=== PATIENT | female | born 1955 | race Caucasian/White ===

== ENCOUNTER 2016-07-03 21:29 | Emergency (ER) | payer SELFPAY ==
--- NOTE | 2016-07-04 03:17 | ED CLINICAL REPORT ---
Clinical Report - Physicians/Mid Levels [facility] [address] [place] [address] 07/03/2016 21:29 Patient: MARIELLA ARMENTA Time Seen: 22:01; initial patient contact. Arrived- By private vehicle. Historian- patient. HISTORY OF PRESENT ILLNESS Chief Complaint: SKIN RASH. This started several years ago and is still present (worse since 1 1/2 weeks ago). It was gradual in onset. It has been located on the right lower extremity. A possible cause has been identified (Old injury from years ago that never healed.). No recent medication or insect bite. Similar symptoms previously: Many times. Recent medical care: Not recently seen/assessed. REVIEW OF SYSTEMS No fever, chills, difficulty breathing, nausea or vomiting. All systems otherwise negative, except as recorded above. PAST HISTORY Hemorrhoids. Hypokalemia. Substance Abuse. Lower Extremity Pain. Fall. Contusion. Pneumonia. Constipation. Rectal Bleed. -. SOCIAL HISTORY Current every day smoker (electronic cigarrette). Occasional alcohol use. No drug use. ADDITIONAL NOTES The nursing notes have been reviewed with agreement regarding the chief complaint, PMH and patient medications and allergies. PHYSICAL EXAM Vital Signs: 07/03/2016 21:30 BP: 97/58. HR: 101. RR: 20. O2 saturation: 100%. Temp: 97.8 F. Have been reviewed. Hypotensive. Tachycardic. Respiratory rate normal. Temperature normal. Oxygen saturation normal. Appearance: Alert. Oriented X3. No acute distress. ENT: Pharynx normal. CVS: Normal heart rate and rhythm. Heart sounds normal. Respiratory: No respiratory distress. Breath sounds normal. Rectal: Rectal exam normal and nontender. Stool heme negative; hemoccult quality control head check passed. (POC test reference range: negative). Stool color normal. ( Female DION Salazar I present.). Skin: Moderate pallor. (Multiple ulcers on RLE). Extremities: Bilateral 1+ pitting edema of the lower extremities involving both lower legs. Neuro: Oriented X 3. No motor deficit. LABS, X-RAYS, AND EKG Laboratory Tests: CBC w Diff: (FABRICIO: 07/03/2016 21:50) ( [facility] 07/03/2016 22:33) Final results Test Result Flag Units (Reference) WHITE BLOOD COUNT 11.3 K/uL (4.5-11.5) RED BLOOD COUNT 2.00 L M/uL (4.00-5.20) HEMOGLOBIN 5.5 *L gm/dL (12.0-16.0) CRITICAL RESULTS CALLEDCalled to [facility] 07/03/16 223Were 2 patient identifiers used? YWas the result read back? Y HEMATOCRIT 17.2 *L % (36.0-46.0) CRITICAL RESULTS CALLEDCalled to [facility] 07/03/162231Were 2 patient identifiers used? YWas the result read back? Y MEAN CELL VOLUME 86 fL (80-100) MEAN CORPUSCULAR HGB 27 pg (26-34) MEAN CORPUSCULAR HGB CONC 32 g/dL (31-37) RED CELL DISTRIBUTION WIDTH 19.0 H % (11.6-14.8) PLATELET COUNT 269 K/uL (150-400) NEUTROPHIL % 72.4 % (50-75) LYMPH % 10.9 L % (25-40) MONO % 14.4 H % (3-14) EOSINOPHIL % 1.8 % (0-4) BASOPHIL % 0.5 % (0-2) BNP: (FABRICIO: 07/03/2016 21:50) ( [facility] 07/03/2016 22:49) Final results Test Result Flag Units (Reference) B-TYPE NATRIURETIC PEPTIDE 144 H pg/ml (5-100) [id number]: (FABRICIO: 07/03/2016 21:50) ( [facility] 07/03/2016 23:05) Final results Test Result Flag Units (Reference) PROCALCITONIN <0.5 ng/mL (0-0.5) PCT Concentration: Interpretation : Risk/option for action PCT <=0.5 ng/mL : Systemic : Low risk forinfection(sepsis): progression to severeis not likely. : systemic infection.Local bacterial : CAUTION-PCT levelsinfection is : below 0.5 ng/mL do notpossible. : exclude an infection,because localizedinfections (withoutsystemic signs) may beassociated with suchlow levels. If PCT ismeasured very earlyafter a bacterialchallenge (usually <6hours), these valuesmay still be low. Inthis case PCT shouldbe re-assessed 6-24hours later. PCT >0.5 and : Systemic infection: Moderate risk for<= 2 ng/mL : (sepsis) is : progression to severepossible, but : systemic infection.other conditions : The patient should beare known to : closely monitoredelevate PCT. : both clinically andby re-assessing PCTwithin 6-24 hours. PCT > 2 ng/mL : Systemic infection: High risk for(sepsis) is likely: progression to severeunless other : systemic infection.causes are known. : PCT >= 10 ng/mL : Important systemic: High likelihood ofinflammatory : severe sepsis orresponse, almost : septic shock.exclusively due to:severe bacterial :sepsis or septic :shock. : CMP: (FABRICIO: 07/03/2016 21:50) ( MsgRcvd 07/03/2016 22:50) Final results Test Result Flag Units (Reference) GLUCOSE 121 H mg/dL (70-110) BUN 22 H mg/dL (7-18) CREATININE 1.0 mg/dL (0.6-1.3) Estimated GFR 59.71 mL/min Estimated GFR- >60 mL/min Note: Persistent reduction over 3 months in eGFR<60 mL/min/1.73 m2 defines CKD. Patients with eGFR values>=60 mL/min/1.73 m2 may also have CKD if evidence ofpersistent proteinuria. Additional information may be foundat www.kidney.org. SODIUM 138 mmol/L (136-145) POTASSIUM 4.4 mmol/L (3.5-5.1) CHLORIDE 106 mmol/L (98-107) CARBON DIOXIDE 22 mmol/L (21-32) CALCIUM 8.6 mg/dL (8.5-10.1) TOTAL PROTEIN 7.1 g/dL (6.4-8.2) ALBUMIN 2.3 L g/dL (3.3-5.0) BILIRUBIN, TOTAL 0.6 mg/dL (0.0-1.0) ALKALINE PHOSPHATASE 178 H U/L (46-116) AST (SGOT) 47 H U/L (15-37) ALT (SGPT) 33 U/L (12-78) LACTIC ACID SEPSIS PROTOCOL 2.1 H mmol/L (0.4-2.0) Type & Cross: (FABRICIO: 07/03/2016 21:50) ( MsgRcvd 07/04/2016 00:03) IP Test Result Flag Units (Reference) LEUKOREDUCED PACKED CELLS [id number] OP PC XM COMPATIBLE [id number] OP PC ISSUED 07/04/16 0000 PATIENT BLOOD TYPE O Positive Above is a corrected result. Previously reported on ( MsgRcvd 07/03/2016 23:40) as: PATIENT BLOOD TYPE O Positive ANTIBODY SCREEN NEGATIVE Above is a corrected result. Previously reported on ( MsgRcvd 07/03/2016 23:40) as: ANTIBODY SCREEN NEGATIVE . PROGRESS AND PROCEDURES Critical care performed (70 minutes). Time includes: direct patient care, patient reassessment, coordination of patient care, interpretation of data (laboratory data and pulse oximetry), review of patient's medical records, medical consultation, family consultation regarding treatment decisions and documentation of patient care. The patient required critical care due to the acute impairment of vital organ systems (hematologic) and a high probability of imminent deterioration. Multiple urgent interventions were required to prevent sudden deterioration. Discussed case with hospitalist, (call returned :49 Dr. Joshi at [facility]. Will accept pt.). Disposition: Benefits, risks and alternatives to transfer explained to patient and family. Transferred to [facility]. CLINICAL IMPRESSION Severe chronic anemia. Mild idiopathic hypotension. (Non-healing right lower extremity ulcers). (Electronically signed by Heraclio Croft Dr. 07/04/2016 2:00)
--- NOTE | 2016-07-04 03:17 | ED DISCHARGE INSTRUCTIONS ---
Patient: MARIELLA ARMENTA General Instructions [facility] VisitID: [id number] [place] [address] 60y, F Registration Date/Time: 07/03/2016 Severe chronic anemia. Mild idiopathic hypotension. (Non-healing right lower extremity ulcers). ADDITIONAL INFORMATION Anemia [Type Not Specified, Adult] Red blood cells carry oxygen to the tissues of the body. Anemia is a condition where the size or number of red blood cells in the body is reduced. Iron is needed to make red blood cells. The most common cause of anemia is iron deficiency. This may be due to: i) Blood loss (heavy menstrual periods or bleeding from the stomach or intestines); or, ii) Not eating enough iron-containing foods. Other causes of anemia include certain vitamin deficiencies, chronic kidney disease or certain other chronic illnesses. Anemia causes a feeling of being tired and run down. When anemia becomes severe, the skin becomes pale and there is shortness of breath with exertion. Headaches, dizziness, leg cramps with exertion, drowsiness and fatigue are other common symptoms. Home Care: If you are having symptoms of anemia listed above: -- Do not overexert yourself. -- Talk to your doctor before flying on an airplane or traveling to high altitudes. Follow Up with your doctor as advised by our staff. Additional blood testing may be required to determine the exact cause of your anemia. If testing was done on this visit, it may take several days to get all of the results. You may call this facility or follow up with your own doctor to get the results. Get Prompt Medical Attention if any of the following occur: -- Shortness of breath or chest pain -- Worsening of dizziness, fainting -- Vomiting blood or passing red or black-colored stool You have been given the following additional information: Anemia, Type Not Specified (Adult) (Electronically signed by Heraclio Croft Dr. 07/04/2016 2:00)
--- NOTE | 2016-07-04 03:17 | ED MED RECONCILIATION SUMMARY ---
Patient: MARIELLA ARMENTA Medication Reconciliation Report [facility] VisitID: [id number] [address] [place] [address] 60y, F Registration Date/Time: 07/03/2016 Weight: 95.2 kg Height/Length: 62 in. BMI: 38.4 ALLERGIES: Codeine The patient's Home Medications are listed below: NONE. The source(s) of the original Home Medication information: patient The following Medications were given to the patient in the Emergency Department: IV NS IV Fluids bolus 0, then 999 mL/hr, administered: 07/03/2016 10:27:00 PM Ativan [IVP] IVP 1 mg, administered: 07/04/2016 2:50:00 AM The following Medications were prescribed to the patient: None.
--- NOTE | 2016-07-04 03:17 | ED ORDER SUMMARY ---
..... Patient: MARIELLA ARMENTA OrderSheet [facility] VisitID: [id number] [place] [address] 60y, F Registration Date/Time: 07/03/2016 ORDER SHEET Weight: 95.2 kg (stated) Allergies: Codeine GENERAL ORDERS: Blood Culture (No) (N/A) Urgent (22:17 07/03/2016 Namita Zuñiga) (22:19 TLewis R.N.) CBC w Diff Urgent (22:17 07/03/2016 Namita Zuñiga) (22:19 TLewis R.N.) CMP Urgent (22:07/03/2016 Namita Zuñiga) (22:19 TLewis R.N.) UA-Culture if indicated Urgent (22:07/03/2016 Namita Zuñiga) (22:19 TLewis R.N.) BNP Urgent (22:07/03/2016 Namita Zuñiga) (Ack 22:20 IJurca ER Tech1) (22:20 TLewis R.N.) Lactic Acid for Sepsis Protocol Urgent (22:17 07/03/2016 Namita Zuñiga) (22:19 TLewis R.N.) PCT (Procalcitonin) Urgent (22:17 07/03/2016 Namita Zuñiga) (22:19 TLewis R.N.) Type & Cross (severe anemia) (compatability) Urgent (23:28 07/03/2016 Namita Zuñiga) (Ack 23:30 IJurca ER Tech1) (0:41 TLewis R.N.) Transfuse PRBCs (23:28 07/03/2016 Namita Zuñiga) (Ack 23:30 IJurca ER Tech1) (0:41 TLewis R.N.) MEDICATION ORDERS: IV FLUIDS: IV NS : initial bolus none -, then 1000 mL/hr for X1 (NOW) (22:16 07/03/2016 Namita Zuñiga) (Ack 22:24 MWinterer R.N.) (22:27 MWinterer R.N.) Ativan IV 1 mg (HIGH ALERT MEDICATION, NOW) (02:43 07/04/2016 Namita Zuñiga) (2:56 Anila Pack) ORDER SHEET NOTES: [Electronically signed by Heraclio Croft Dr. (02:00 07/04/2016)] [Electronically signed by Marie Merritt R.N. (03:17 07/04/2016)] [Electronically locked/signed by Marie Merritt R.N. (03:17 07/04/2016)]
--- NOTE | 2016-07-04 03:17 | ED ORDER SUMMARY ---
..... Patient: MARIELLA ARMENTA OrderSheet [facility] VisitID: [id number] [place] [address] 60y, F Registration Date/Time: 07/03/2016 ORDER SHEET Weight: 95.2 kg (stated) Allergies: Codeine GENERAL ORDERS: Blood Culture (No) (N/A) Urgent (22:17 07/03/2016 Namita Zuñiga) (22:19 TLewis R.N.) CBC w Diff Urgent (22:17 07/03/2016 Namita Zuñiga) (22:19 TLewis R.N.) CMP Urgent (22:07/03/2016 Namita Zuñiga) (22:19 TLewis R.N.) UA-Culture if indicated Urgent (22:07/03/2016 Namita Zuñiga) (22:19 TLewis R.N.) BNP Urgent (22:07/03/2016 Namita Zuñiga) (Ack 22:20 IJurca ER Tech1) (22:20 TLewis R.N.) Lactic Acid for Sepsis Protocol Urgent (22:17 07/03/2016 Namita Zuñiga) (22:19 TLewis R.N.) PCT (Procalcitonin) Urgent (22:17 07/03/2016 Namita Zuñiga) (22:19 TLewis R.N.) Type & Cross (severe anemia) (compatability) Urgent (23:28 07/03/2016 Namita Zuñiga) (Ack 23:30 IJurca ER Tech1) (0:41 TLewis R.N.) Transfuse PRBCs (23:28 07/03/2016 Namita Zuñiga) (Ack 23:30 IJurca ER Tech1) (0:41 TLewis R.N.) MEDICATION ORDERS: IV FLUIDS: IV NS : initial bolus none -, then 1000 mL/hr for X1 (NOW) (22:16 07/03/2016 Namita Zuñiga) (Ack 22:24 MWinterer R.N.) (22:27 MWinterer R.N.) Ativan IV 1 mg (HIGH ALERT MEDICATION, NOW) (02:43 07/04/2016 Namita Zuñiga) (2:56 Anila Pack) ORDER SHEET NOTES: [Electronically signed by Heraclio Croft Dr. (02:00 07/04/2016)] [Electronically signed by Marie Merritt R.N. (03:17 07/04/2016)] [Electronically locked/signed by Marie Merritt R.N. (03:17 07/04/2016)]
--- NOTE | 2016-07-04 03:17 | ED MAR SUMMARY ---
..... Medication Administration Record [facility] [address] [place] [address] Patient: MARIELLA ARMENTA Visit ID: [id number] 60y, F Weight: 95.2 kg Height/Length: 62 in BMI: 38.4 ALLERGIES: Codeine Start 22:27 07/03/2016 Tamica Correa R.N., Stop 23:30 07/03/2016 Marie Merritt R.N. Medication Administered: IV NS (SALINE), Dose: IV Fluids over 1 hour(s), Rate: 999 mL/hr, Dispensed: 1000 mL bag, Site: #1 right AC. Medication Ordered: IV NS : initial bolus none -, then 1000 mL/hr for X1 (NOW). Given 02:50 07/04/2016 Marie Merritt R.N. Medication Administered: ATIVAN [IVP] (LORAZEPAM), Dose: 1 mg IVP over 1 minute(s), Site: #1 right AC. Medication Ordered: Ativan IV 1 mg (HIGH ALERT MEDICATION, NOW).
--- NOTE | 2016-07-04 03:17 | ED NURSING NOTES ---
Clinical Report - Nurses [facility] [address] [place] [address] 07/03/2016 21:29 Patient: MARIELLA ARMENTA TRIAGE Triage time 21:30. Acuity: LEVEL 3. Chief Complaint: INJURY TO RIGHT FOOT. --21:36 Beny Arshad R.N. 21:30 07/03/16. BP: 97/58. HR: 101. RR: 20. O2 saturation: 100%. Temp: 97.8 F. Pain level now 08/24. --21:36 Beny Arshad R.N. Weight: 95.2 kg stated. Height/Length: 62 inches Per Patient. BMI: 38.4. --21:33 Beny Arshad R.N. Medications None. --21:34 Beny Arshad R.N. Medication/allergy information source: the patient. --21:36 Beny Arshad R.N. Allergies Codeine. --21:34 Beny Arshad R.N. History Arrived by EMS, and accompanied by family. This occurred (4 days ago). ( Pt fell in the shower 4 days ago. Pt remembers waking up on the floor. Pt had a lac on the right foot, but was not treated for it. Today, she hit her). ( Pt is having sob due to copd and spo2 at room air is 100%.). Treatment OFFICE HELPER: None. PAST MEDICAL HX: Immunizations: up-to-date. SOCIAL HX: Current every day smoker (electronic cigarrettes). Occasional alcohol use; consumes two glasses of wine. No drug use. --21:36 Beny Arshad R.N. PROBLEMS: Hemorrhoids. Hypokalemia. Substance Abuse. Lower Extremity Pain. Fall. Contusion. Pneumonia. Constipation. Rectal Bleed. --21:36 Beny Arshad R.N. Interventions ID band on patient. To treatment room. --21:36 Beny Arshad R.N. PHYSICAL ASSESSMENT GENERAL / NEURO / PSYCH: Oriented X 4. Alert. Appears in no acute distress. Appears anxious. ( Pt also has an umbilical hernia.). EXTREMITIES: Capillary refill is less than 2 seconds in the extremities. Extremity pulses are within normal limits. Neuro-vascular status intact to the extremity. Right foot. SKIN: ( Pt has multiple wounds on her right foot. the bandages were removed that were placed by family and blood started shooting from a small wound on the right ankle that was bright red blood. Pressure dressing was placed on the wound. Pt has pus coming from multiple wounds on her right foot.). --21:47 Beny Arshad R.N. NURSING PROGRESS NOTES Patient gowned. Two patient identifiers checked. Call light placed in reach. Side rails up x 1. Bed placed in lowest position. Brakes of bed on. --21:47 Beny Arshad R.N. 22:03 07/03/2016 Site #1 started via IV in the right antecubital space with an 20g angiocath, with aseptic technique and good blood return; one attempt. Blood drawn: rainbow set. Labeled in the presence of the patient and sent to the lab. Saline lock flushed with 10 mL saline. --22:03 Tamica Correa R.N. 22:04 07/03/16. ( 1st set blood cultures and lactate drawn at IV start). --22:04 Tamica Correa R.N. 22:27 07/03/2016 Started bag #1 1000 mL IV Fluids IV NS (Saline); at 999 mL/hr over 1 hour(s) via site #1 via IV pump. Allergies verified and confirmed 5 rights. IV patency established. IV site checked: no pain, redness, or swelling. IV flushed thoroughly pre- and post-medication administration. --22:27 Tamica Correa R.N. Critical value relayed to ED by Venita. Critical value received by Michael. Hgb: 5.5. Hct: 17.2. Critical value read back. Verified patient ID. ED physician and charge nurse notifed of critical value. --22:34 Michael Callahan, ER Tech1 ( Lab is present in the room.). --22:48 Beny Arshad R.N. 22:42 07/03/16. BP: 102/36. HR: 104. RR: 20. O2 saturation: 97%. Pain level now 3/10. --22:48 Beny Arshad R.N. 22:48 07/03/16. BP: 110/93. --22:49 Beny Arshad R.N. 23:55 07/03/16. BP: 94/65. HR: 104. RR: 22. O2 saturation: 98%. Pain level now 06/24. --23:55 Beny Arshad R.N. BLOOD PRODUCT STARTED: consent signed, ID band checked and blood product verified to order and patient's blood band by 2 staff members. #1 unit PRBC via IV pump (75 mL/hr 00:17). See transfusion record. --00:17 Beny Arshad R.N. 00:06 07/04/16. BP: 103/57 taken on the left arm, via an automated monitor, while lying. HR: 105 (regular and normal rate). RR: 20 (regular, normal and deep). Temp: 98 F. Pain level now: 06/24. --00:17 Beny Arshad R.N. BLOOD PRODUCT STARTED. (150 mL/hr 00:31 rate adjusted). --00:32 Beny Arshad R.N. 00:30 07/04/16. BP: 103/49. HR: 104. RR: 20. O2 saturation: 97%. Temp: 98 F. Pain level now 06/24. --00:32 Beny Arshad R.N. ( daughter at bedside). --00:47 Beny Arshad R.N. 00:46 07/04/16. BP: 96/52. HR: 104. RR: 20. O2 saturation: 96%. Temp: 98.1 F. Pain level now . --00:47 Beny Arshad R.N. BLOOD PRODUCT STARTED. (200 mL/hr 00:48 rate increase). --00:48 Beny Arshad R.N. 02:01 07/04/16. BP: 108/60. HR: 97. RR: 18. O2 saturation: 100%. Pain level now 08/24. --02:02 Perry Merritt R.N. 02:34 07/04/16. BP: 107/61. HR: 98. RR: 18. O2 saturation: 100%. Temp: 98.1 F. Pain level now: 07/25. --02:35 Perry Merritt R.N. 23:30 07/03/2016 IV Fluids IV NS Discontinued: bag #1 completed. Total amount infused: 1000 mL. IV patency established. IV site checked: no pain, redness, or swelling. IV flushed thoroughly. --03:17 Perry Merritt R.N. 02:01 07/04/16. ( to be transferred to [facility] 2025. [facility] ems transport. patient and family updated on situation.). --02:02 Perry Merritt R.N. 02:20 07/04/16. BLOOD PRODUCT DISCONTINUED: #1 unit PRBC. No adverse reaction noted. See transfusion record. --02:34 Perry Merritt R.N. 02:35 07/04/16. BLOOD PRODUCT STARTED: consent signed, ID band checked and blood product verified to order and patient's blood band by 2 staff members. #2 unit PRBC via IV pump. --02:35 Perry Merritt R.N. DISPOSITION / DISCHARGE 02:10 07/04/16. Condition at departure: improved and stable. The goals identified in the patient's plan of care were met. Transferred to [facility]. Summary of care provided to transport team via paper. Report was given to a nurse via a phone call. Report included patient's care, treatment, medications, reviewed medication reconcilliation, and condition (including any recent changes or anticipated changes). All questions were answered. Report was acknowledged. (Receiving RN name Perry Rodgers RN). ( 2nd unit prbc continued for critical care transport team). --02:57 Perry Merritt R.N. 02:50 07/04/2016 Ativan (LORazepam) IVP 1 mg given over 1 minute(s) via site #1. Allergies verified, confirmed 5 rights and sedative warning given to the patient and patient's family. IV patency established. IV site checked: no pain, redness, or swelling. IV flushed thoroughly pre- and post-medication administration. IVP given by RN. --02:56 Perry Merritt R.N. 02:10 07/04/16. BP: 105/74. HR: 99. RR: 18. O2 saturation: 100%. Temp: 98.1 F. Pain level now 07/25. --02:57 Perry Merritt R.N. 02:55 07/04/2016 Site #[address] upon transfer; patent. Good blood return present. --02:57 Perry Merritt R.N. Locked/Released at 07/04/2016 3:17 by Perry Merritt R.N.
--- NOTE | 2016-07-04 03:17 | ED MED RECONCILIATION SUMMARY ---
Patient: MARIELLA ARMENTA Medication Reconciliation Report [facility] VisitID: [id number] [address] [place] [address] 60y, F Registration Date/Time: 07/03/2016 Weight: 95.2 kg Height/Length: 62 in. BMI: 38.4 ALLERGIES: Codeine The patient's Home Medications are listed below: NONE. The source(s) of the original Home Medication information: patient The following Medications were given to the patient in the Emergency Department: IV NS IV Fluids bolus 0, then 999 mL/hr, administered: 07/03/2016 10:27:00 PM Ativan [IVP] IVP 1 mg, administered: 07/04/2016 2:50:00 AM The following Medications were prescribed to the patient: None.
--- NOTE | 2016-07-04 03:17 | ED CLINICAL REPORT ---
Clinical Report - Physicians/Mid Levels [facility] [address] [place] [address] 07/03/2016 21:29 Patient: MARIELLA ARMENTA Time Seen: 22:01; initial patient contact. Arrived- By private vehicle. Historian- patient. HISTORY OF PRESENT ILLNESS Chief Complaint: SKIN RASH. This started several years ago and is still present (worse since 1 1/2 weeks ago). It was gradual in onset. It has been located on the right lower extremity. A possible cause has been identified (Old injury from years ago that never healed.). No recent medication or insect bite. Similar symptoms previously: Many times. Recent medical care: Not recently seen/assessed. REVIEW OF SYSTEMS No fever, chills, difficulty breathing, nausea or vomiting. All systems otherwise negative, except as recorded above. PAST HISTORY Hemorrhoids. Hypokalemia. Substance Abuse. Lower Extremity Pain. Fall. Contusion. Pneumonia. Constipation. Rectal Bleed. -. SOCIAL HISTORY Current every day smoker (electronic cigarrette). Occasional alcohol use. No drug use. ADDITIONAL NOTES The nursing notes have been reviewed with agreement regarding the chief complaint, PMH and patient medications and allergies. PHYSICAL EXAM Vital Signs: 07/03/2016 21:30 BP: 97/58. HR: 101. RR: 20. O2 saturation: 100%. Temp: 97.8 F. Have been reviewed. Hypotensive. Tachycardic. Respiratory rate normal. Temperature normal. Oxygen saturation normal. Appearance: Alert. Oriented X3. No acute distress. ENT: Pharynx normal. CVS: Normal heart rate and rhythm. Heart sounds normal. Respiratory: No respiratory distress. Breath sounds normal. Rectal: Rectal exam normal and nontender. Stool heme negative; hemoccult quality assurance check passed. (POC test reference range: negative). Stool color normal. ( Female DION Salazar I present.). Skin: Moderate pallor. (Multiple ulcers on RLE). Extremities: Bilateral 1+ pitting edema of the lower extremities involving both lower legs. Neuro: Oriented X 3. No motor deficit. LABS, X-RAYS, AND EKG Laboratory Tests: CBC w Diff: (FABRICIO: 07/03/2016 21:50) ( [facility] 07/03/2016 22:33) Final results Test Result Flag Units (Reference) WHITE BLOOD COUNT 11.3 K/uL (4.5-11.5) RED BLOOD COUNT 2.00 L M/uL (4.00-5.20) HEMOGLOBIN 5.5 *L gm/dL (12.0-16.0) CRITICAL RESULTS CALLEDCalled to [facility] 07/03/16 223Were 2 patient identifiers used? YWas the result read back? Y HEMATOCRIT 17.2 *L % (36.0-46.0) CRITICAL RESULTS CALLEDCalled to [facility] 07/03/162231Were 2 patient identifiers used? YWas the result read back? Y MEAN CELL VOLUME 86 fL (80-100) MEAN CORPUSCULAR HGB 27 pg (26-34) MEAN CORPUSCULAR HGB CONC 32 g/dL (31-37) RED CELL DISTRIBUTION WIDTH 19.0 H % (11.6-14.8) PLATELET COUNT 269 K/uL (150-400) NEUTROPHIL % 72.4 % (50-75) LYMPH % 10.9 L % (25-40) MONO % 14.4 H % (3-14) EOSINOPHIL % 1.8 % (0-4) BASOPHIL % 0.5 % (0-2) BNP: (FABRICIO: 07/03/2016 21:50) ( [facility] 07/03/2016 22:49) Final results Test Result Flag Units (Reference) B-TYPE NATRIURETIC PEPTIDE 144 H pg/ml (5-100) [id number]: (FABRICIO: 07/03/2016 21:50) ( [facility] 07/03/2016 23:05) Final results Test Result Flag Units (Reference) PROCALCITONIN <0.5 ng/mL (0-0.5) PCT Concentration: Interpretation : Risk/option for action PCT <=0.5 ng/mL : Systemic : Low risk forinfection(sepsis): progression to severeis not likely. : systemic infection.Local bacterial : CAUTION-PCT levelsinfection is : below 0.5 ng/mL do notpossible. : exclude an infection,because localizedinfections (withoutsystemic signs) may beassociated with suchlow levels. If PCT ismeasured very earlyafter a bacterialchallenge (usually <6hours), these valuesmay still be low. Inthis case PCT shouldbe re-assessed 6-24hours later. PCT >0.5 and : Systemic infection: Moderate risk for<= 2 ng/mL : (sepsis) is : progression to severepossible, but : systemic infection.other conditions : The patient should beare known to : closely monitoredelevate PCT. : both clinically andby re-assessing PCTwithin 6-24 hours. PCT > 2 ng/mL : Systemic infection: High risk for(sepsis) is likely: progression to severeunless other : systemic infection.causes are known. : PCT >= 10 ng/mL : Important systemic: High likelihood ofinflammatory : severe sepsis orresponse, almost : septic shock.exclusively due to:severe bacterial :sepsis or septic :shock. : CMP: (FABRICIO: 07/03/2016 21:50) ( MsgRcvd 07/03/2016 22:50) Final results Test Result Flag Units (Reference) GLUCOSE 121 H mg/dL (70-110) BUN 22 H mg/dL (7-18) CREATININE 1.0 mg/dL (0.6-1.3) Estimated GFR 59.71 mL/min Estimated GFR- >60 mL/min Note: Persistent reduction over 3 months in eGFR<60 mL/min/1.73 m2 defines CKD. Patients with eGFR values>=60 mL/min/1.73 m2 may also have CKD if evidence ofpersistent proteinuria. Additional information may be foundat www.[email or web address].org. SODIUM 138 mmol/L (136-145) POTASSIUM 4.4 mmol/L (3.5-5.1) CHLORIDE 106 mmol/L (98-107) CARBON DIOXIDE 22 mmol/L (21-32) CALCIUM 8.6 mg/dL (8.5-10.1) TOTAL PROTEIN 7.1 g/dL (6.4-8.2) ALBUMIN 2.3 L g/dL (3.3-5.0) BILIRUBIN, TOTAL 0.6 mg/dL (0.0-1.0) ALKALINE PHOSPHATASE 178 H U/L (46-116) AST (SGOT) 47 H U/L (15-37) ALT (SGPT) 33 U/L (12-78) LACTIC ACID SEPSIS PROTOCOL 2.1 H mmol/L (0.4-2.0) Type & Cross: (FABRICIO: 07/03/2016 21:50) ( MsgRcvd 07/04/2016 00:03) IP Test Result Flag Units (Reference) LEUKOREDUCED PACKED CELLS [id number] OP PC XM COMPATIBLE [id number] OP PC ISSUED 07/04/16 0000 PATIENT BLOOD TYPE O Positive Above is a corrected result. Previously reported on ( MsgRcvd 07/03/2016 23:40) as: PATIENT BLOOD TYPE O Positive ANTIBODY SCREEN NEGATIVE Above is a corrected result. Previously reported on ( MsgRcvd 07/03/2016 23:40) as: ANTIBODY SCREEN NEGATIVE . PROGRESS AND PROCEDURES Critical care performed (70 minutes). Time includes: direct patient care, patient reassessment, coordination of patient care, interpretation of data (laboratory data and pulse oximetry), review of patient's medical records, medical consultation, family consultation regarding treatment decisions and documentation of patient care. The patient required critical care due to the acute impairment of vital organ systems (hematologic) and a high probability of imminent deterioration. Multiple urgent interventions were required to prevent sudden deterioration. Discussed case with hospitalist, (call returned :49 Dr. Joshi at [facility]. Will accept pt.). Disposition: Benefits, risks and alternatives to transfer explained to patient and family. Transferred to [facility]. CLINICAL IMPRESSION Severe chronic anemia. Mild idiopathic hypotension. (Non-healing right lower extremity ulcers). (Electronically signed by Heraclio Croft Dr. 07/04/2016 2:00)
--- NOTE | 2016-07-04 03:17 | ED MAR SUMMARY ---
..... Medication Administration Record [facility] [address] [place] [address] Patient: MARIELLA ARMENTA Visit ID: [id number] 60y, F Weight: 95.2 kg Height/Length: 62 in BMI: 38.4 ALLERGIES: Codeine Start 22:27 07/03/2016 Tamica Correa R.N., Stop 23:30 07/03/2016 Marie Merritt R.N. Medication Administered: IV NS (SALINE), Dose: IV Fluids over 1 hour(s), Rate: 999 mL/hr, Dispensed: 1000 mL bag, Site: #1 right AC. Medication Ordered: IV NS : initial bolus none -, then 1000 mL/hr for X1 (NOW). Given 02:50 07/04/2016 Marie Merritt R.N. Medication Administered: ATIVAN [IVP] (LORAZEPAM), Dose: 1 mg IVP over 1 minute(s), Site: #1 right AC. Medication Ordered: Ativan IV 1 mg (HIGH ALERT MEDICATION, NOW).
--- NOTE | 2016-07-04 03:17 | ED DISCHARGE INSTRUCTIONS ---
Patient: MARIELLA ARMENTA General Instructions [facility] VisitID: [id number] [place] [address] 60y, F Registration Date/Time: 07/03/2016 Severe chronic anemia. Mild idiopathic hypotension. (Non-healing right lower extremity ulcers). ADDITIONAL INFORMATION Anemia [Type Not Specified, Adult] Red blood cells carry oxygen to the tissues of the body. Anemia is a condition where the size or number of red blood cells in the body is reduced. Iron is needed to make red blood cells. The most common cause of anemia is iron deficiency. This may be due to: i) Blood loss (heavy menstrual periods or bleeding from the stomach or intestines); or, ii) Not eating enough iron-containing foods. Other causes of anemia include certain vitamin deficiencies, chronic kidney disease or certain other chronic illnesses. Anemia causes a feeling of being tired and run down. When anemia becomes severe, the skin becomes pale and there is shortness of breath with exertion. Headaches, dizziness, leg cramps with exertion, drowsiness and fatigue are other common symptoms. Home Care: If you are having symptoms of anemia listed above: -- Do not overexert yourself. -- Talk to your doctor before flying on an airplane or traveling to high altitudes. Follow Up with your doctor as advised by our staff. Additional blood testing may be required to determine the exact cause of your anemia. If testing was done on this visit, it may take several days to get all of the results. You may call this facility or follow up with your own doctor to get the results. Get Prompt Medical Attention if any of the following occur: -- Shortness of breath or chest pain -- Worsening of dizziness, fainting -- Vomiting blood or passing red or black-colored stool You have been given the following additional information: Anemia, Type Not Specified (Adult) (Electronically signed by Heraclio Croft Dr. 07/04/2016 2:00)
== END 2016-07-04 03:00 | disposition short-term general hospital (02) ==
LOC: ED SRH 21:29
DX: D64.9 Anemia, unspecified (principal); I95.0 Idiopathic hypotension; L97.919 Non-pressure chronic ulcer of unspecified part of right lower leg with unspecified severity
CPT/HCPCS: 90001; 90065; 90074; 90100; 90155; 91004; 91320; 91544; 92031; 93004; 95059